=== PATIENT | male | born 1985 | race Caucasian/White ===

== ENCOUNTER 2018-11-18 12:41 | Outpatient (RCR) | payer OTHER | END 2019-02-16 | disposition home or self-care (01) | LOC: WSOH | DX: S39.012A Strain of muscle, fascia and tendon of lower back, initial encounter (principal); X50.0XXA Overexertion from strenuous movement or load, initial encounter; Y92.214 College as the place of occurrence of the external cause; Y99.0 Civilian activity done for income or pay; D69.6 Thrombocytopenia, unspecified; Z96.9 Presence of functional implant, unspecified; Z88.0 Allergy status to penicillin; Z88.2 Allergy status to sulfonamides ==

== ENCOUNTER 2019-05-25 05:49 | Day surgery (SDC) | payer BC ==
[~2019-05-25] VITALS: Ht 167.6 cm; Wt 65.0 kg
[2019-05-25 06:55] LABS: BASO % 0.6 % (0.0-2.0); EOS # 0.3 (0.0-0.7); EOS % 5.3 % (0-4.0); GRAN # 3.1 (1.4-6.5); GRAN % 62.2 % (42.2-75.2); HEMATOCRIT 43.9 % (42.0-52.0); HEMOGLOBIN 14.8 g/dl (13.5-18.0); LYMPH # 1.1 (1.2-3.4); LYMPH % 23.1 % (20.0-51.0); MEAN CELL VOLUME 95 fl (80.0-100.0); MEAN CORPUSCULAR HEMOGLOBIN 32 pg (27.0-31.0); MEAN CORPUSCULAR HGB CONC 34 g/dl (33.0-37.0); MEAN PLATELET VOLUME 12.3 fl (7.4-10.4); MONO # 0.4 (0.1-0.6); MONO % 8.6 % (1.7-9.3); PLATELET COUNT 98 K/mm3 (130-400); RED BLOOD COUNT 4.64 M/mm3 (4.20-5.60); REDCELL DISTRIBUTION WIDTH-CV 12.1 % (11.5-14.5)
[2019-05-25 07:12] VITALS: BP 125/76; PULSE 57; TEMP 97.6
[2019-05-25] MEDS ORDERED: B COMPLEX #11 TA1 PO (07:26)
[2019-05-25 09:30] VITALS: BP 154/86; PULSE 65; TEMP 97.5
--- NOTE | 2019-05-25 09:30 | NUR ---
Pt returned via cart to [facility]. A&O. VSS-see flowsheet. Pt requested muffin and OJ. Reports mild pain, with faces chart-rated a 3/10 in abdomen. [place] set intact x 3 incisions to abdomen. Side rails up, call light in reach and mother present in room.
[2019-05-25 09:45] VITALS: BP 139/78; PULSE 62; TEMP 97.7
[2019-05-25 10:00] VITALS: BP 139/78; PULSE 66; TEMP 97.8
[2019-05-25 10:15] VITALS: BP 151/83; PULSE 61; TEMP 98.4
--- NOTE | 2019-05-25 11:25 | NUR ---
Pt tolerated muffin, pudding, juice and water. Pt rates pain a 2/10 stating he is comfortable and denies need for intervention. VS remain stable. Pt able to void without difficulty. IV removed with pressure dressing applied to site. Discharge teaching completed, pt and mom verbalized understanding. Taken via wheelchair to private vehicle for discharge home with mom driving.
== END 2019-05-25 11:25 | disposition home or self-care (01) ==
LOC: SDCO 05:49
PROVIDERS: Surgery
DX: K40.90 Unilateral inguinal hernia, without obstruction or gangrene, not specified as recurrent (principal); K21.9 Gastro-esophageal reflux disease without esophagitis; D69.6 Thrombocytopenia, unspecified; Z88.0 Allergy status to penicillin; Z88.2 Allergy status to sulfonamides
CPT/HCPCS: C1781; J0690; J1100; J1885; J2405; J2704; J3010

== ENCOUNTER 2019-08-14 13:38 | Outpatient (RCR) | payer OTHER ==
[~2019-08-14 13:38] MED LIST: B COMPLEX #11 TA1 PO
== END 2019-11-01 | disposition home or self-care (01) ==
LOC: WSOH
DX: Z48.02 Encounter for removal of sutures (principal); S61.411D Laceration without foreign body of right hand, subsequent encounter; Z98.890 Other specified postprocedural states; Y99.0 Civilian activity done for income or pay

== ENCOUNTER 2020-12-28 07:06 | Emergency (ER) | payer BC ==
[~2020-12-28] VITALS: Ht 167.6 cm; Wt 68.2 kg
[2020-12-28 07:13] VITALS: TEMP 98.2
[2020-12-28 10:32] VITALS: BP 126/66; PULSE 76
== END 2020-12-28 10:23 | disposition home or self-care (01) ==
LOC: COL.ER 07:06
DX: T18.128A Food in esophagus causing other injury, initial encounter (principal); X58.XXXA Exposure to other specified factors, initial encounter
CPT/HCPCS: J1610; J2405; J2704; J7030